=== PATIENT | female | born 1995 | race Caucasian/White ===

== ENCOUNTER 2017-02-11 12:22 | Emergency (ER) | payer SELFPAY ==
[~2017-02-11] VITALS: Ht 167.6 cm; Wt 59.0 kg
[2017-02-11 12:22] VITALS: BP 126/71; PULSE 77; RESP 20; TEMP 98.8; O2SAT 98
--- NOTE | 2017-02-11 12:22 | NUR ---
BIB [facility] BLS, placed in bed 2. Arrived modified c-spine, ambulatory on scene, hard c-collar. Leora QUINONEZ MD notified.
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
--- NOTE | 2017-02-11 12:47 | NUR ---
Dr. Guidry at bedside for evaluation
--- NOTE | 2017-02-11 13:00 | NUR ---
Mother at bedside. PT sitting quietly. Offered water. No complaints at this time. Will continue to monitor.
[2017-02-11] MEDS ORDERED: IBUPROFEN 600 MG TABLET PO ONE (13:15)
[2017-02-11 13:19] VITALS: BP 122/74; PULSE 74; RESP 20; TEMP 98.8; O2SAT 100
--- NOTE | 2017-02-11 13:19 | NUR ---
Patient and mother given written and verbal discharge instructions and verbalizes understanding. ER MD discussed with patient and mother the results and treatment provided. Patient in stable condition. ID arm band removed. Rx of Motrin given. ER MD educated patient and mother on pain management and to follow up with PMD. Pain Scale 2. Opportunity for questions provided and answered.
== END 2017-02-11 13:19 | disposition home or self-care (01) ==
LOC: SED 12:43
DX: S16.1XXA Strain of muscle, fascia and tendon at neck level, initial encounter (principal); M25.512 Pain in left shoulder; M54.5 Low back pain; V89.2XXA Person injured in unspecified motor-vehicle accident, traffic, initial encounter; Y93.89 Activity, other specified; Y92.481 Parking lot as the place of occurrence of the external cause; Y99.8 Other external cause status
CPT/HCPCS: 99283